=== PATIENT | male | born 1960 | race Hispanic/Latino ===

== ENCOUNTER 2017-01-28 13:43 | Emergency (ER) | payer OTHER ==
[2017-01-28] MEDS ORDERED: CATAPRES ONE (14:43)
[2017-01-28] MEDS ORDERED: CATAPRES PO ONE (14:51)
--- NOTE | 2017-01-28 15:01 | Emergency Department Report ---
Entered by DANIS KAUR, acting as scribe for BUCK DILL PA. Chief Complaint: Pain General Stated Complaint: BP HIGH/SOB Time Seen by Provider: 01/28/17 14:22 - HPI History of Present Illness: Patient presents to the ED c/o palpitations that began today. Over the last 9 months, pt has visited this ED for chest pain, SOB, and elevated blood pressure. Today, he reports SOB, left shoulder pain, neck pain, burning eyes, back pain , mild headache, dry throat and facial tingling. Denies chest pain. - ROS Review of Systems: All system are negative unless stated in HPI above. - Exam Vital Signs: Vital Signs 01/28/17 13:59 Temperature 97.8 F Pulse Rate 96 H Respiratory 20 Rate Blood Pressure 157/120 O2 Sat by Pulse 97 Oximetry Physical Exam: General: well nourished, well developed, nontoxic in appearance, in no acute distress Respiratory: lungs sound clear Cardiovascular: S1/S2 regular rate and rhythm Neurological: GCS 15, A&O x 3, normal gait. Speech is clear. No facial drooping. MSE screening note: Focused history and physical exam performed. Due to findings the following was ordered: ED Medical Decision Making - Medical Decision Making Medical decision making: Patient seen by provider in triage area. Appropriate protocol activated and patient to main ED to be seen by provider ED Disposition for MSE Condition: Stable This documentation as recorded by the scribe,DANIS KAUR,accurately reflects the service I personally performed and the decisions made by me,BUCK DILL PA.
--- NOTE | 2017-01-28 15:21 | Cat Scan Report ---
CT HEAD WITHOUT CONTRAST: HISTORY: Headache, hypertension. Serial contiguous axial images were obtained through the cranium. Intravenous contrast material was not administered. The ventricles are normal in size and appearance. There is no mass effect or midline shift. No areas of abnormally increased or decreased attenuation are seen. No mass lesion is seen. The mastoid air cells and visualized portions of the sinuses are normal. IMPRESSION: Cranial CT scan within normal limits.
--- NOTE | 2017-01-28 15:21 | XRay Report ---
ROUTINE CHEST, TWO VIEWS: HISTORY: Short of breath. The trachea, heart, mediastinal contour, lung leger and bony thorax are unremarkable. IMPRESSION: Unremarkable chest x-ray.
[2017-01-28 15:40] LABS: Basophils % (Auto) 0.6 % (0.0-1.8); Hematocrit 51.3 % (35.5-45.6); Hemoglobin 17.4 gm/dl (11.8-15.2); Mean Corpuscular HGB Conc 34 % (32-34); Mean Corpuscular Hemoglobin 31 pg (28-32); Mean Corpuscular Volume 92 fl (84-94); Platelet Count 226 K/mm3 (140-440); Red Cell Distribution Width 13.5 % (13.2-15.2); White Blood Count 8.6 K/mm3 (4.5-11.0)
[2017-01-28 15:51] LABS: INR 0.98 (0.87-1.13)
[2017-01-28 15:55] LABS: Anion Gap 17 mmol/L; Blood Urea Nitrogen 16 mg/dL (9-20); Calcium 9.6 mg/dL (8.4-10.2); Carbon Dioxide 26 mmol/L (22-30); Chloride 102.2 mmol/L (98-107); Glucose 96 mg/dL (75-100); Potassium 4.2 mmol/L (3.6-5.0); Sodium 141 mmol/L (137-145)
[2017-01-28] MEDS ORDERED: NACL 0.9% 1000 ML 1,000 ML IV ONE ×2 (19:37→20:38)
[2017-01-28] MEDS ORDERED: TORADOL IV ONE (19:38)
[2017-01-28] MEDS ORDERED: REGLAN IV ONE (20:37)
[2017-01-28] MEDS ORDERED: VALIUM IV ONE (20:37)
--- NOTE | 2017-01-28 20:42 | Emergency Department Report ---
HPI - General Chief Complaint: Pain General Time Seen by Provider: 01/28/17 20:16 - HPI HPI: The patient is a 56-year-old male who presents for evaluation of back pain and palpitations. He reports sudden onset of severe palpitations and pounding chest pain at 10 AM this morning, 10/10 in severity, constant for minutes to 1 hour, self resolving, and associated with left-sided low back pain. He states that his back pain was moderate in severity, sharp in quality, exacerbated with movement of the back. The patient denies fever, neck pain, parasthesias, cough, hemoptysis, dizziness, syncope, unilateral leg swelling, calf muscle pain, blunt trauma to the back, fall, saddle anesthesia, leg weakness or numbness, urine or bowel incontinence or retention, difficulty ambulating, or other focal neurological deficits. ED Past Medical Hx - Past Medical History Hx Hypertension: Yes Hx Heart Attack/AMI: Yes (04/2015) - Surgical History Hx Appendectomy: Yes - Social History Smoking Status: Never Smoker Substance Use Type: None - Medications Home Medications: Home Medications Medication Instructions Recorded Confirmed Last Taken Type Aspirin [Adult Low Dose Aspirin EC] 81 mg PO QDAY 01/28/17 01/28/17 Unknown History Esomeprazole Magnesium [NexIUM 22.3 mg pe PO QDAY 01/28/17 01/28/17 Unknown History 24Hr] Metoprolol [Lopressor TAB] 25 mg PO QDAY 01/28/17 01/28/17 Unknown History Cyclobenzaprine HCl [Flexeril 5 MG 5 mg PO Q8HR PRN #15 tab 01/29/17 Unknown Rx TAB] ED Review of Systems ROS: Stated complaint: BP HIGH/SOB Other details as noted in HPI Constitutional: denies: fever ENT: denies: throat or neck pain Respiratory: denies: cough, shortness of breath Cardiovascular: reports palpitations and chest pain Endocrine: denies unexplained weight loss or gain Gastrointestinal: denies: abdominal pain, nausea Genitourinary: denies: dysuria Musculoskeletal: reports back pain denies: leg swelling Skin: denies: rash Neurological: denies: headache Hematological/Lymphatic: denies: easy bleeding or easy bruising Psych: denies sadness or hopelessness Physical Exam - Physical Exam Vital Signs: Vital Signs 04/24/17 04/24/17 04/24/17 13:59 14:52 16:03 Temperature 97.8 F 98 F Pulse Rate 96 H 96 H 73 Respiratory 20 18 Rate Blood Pressure 157/120 157/120 126/95 Blood Pressure [Left] O2 Sat by Pulse 97 100 Oximetry 01/28/17 01/28/17 01/28/17 16:04 18:03 19:52 Temperature 97.7 F 98 F Pulse Rate 61 58 L Respiratory 16 16 18 Rate Blood Pressure Blood Pressure 117/80 98/74 [Left] O2 Sat by Pulse 100 99 Oximetry Physical Exam: General: well-nourished, well-developed, no acute distress Head: Normocephalic, atraumatic Eyes: normal sclera ENT: Mucous membranes are pale and dry Neck: No neck stiffness, no cervical adenopathy Respiratory: Breath sounds equal bilaterally, no wheezing, rales, or rhonchi Cardio: S1 and S2 present, no murmurs, rubs, gallops, capillary refill is delayed Abdomen: Normoactive bowel sounds, soft abdomen, no rigidity, no guarding or rebound tenderness Musc: Inspection of the back nml, tenderness to palpation present to left lower lumbar paraspinal musculature, no midline tenderness to palpation, normal active range of motion at the hips intact, no spinous step-off or obvious deformity, ipsi-lateral and contralateral straight leg raise tests are negative. On extremity testing, compartments are soft and pliable, no obvious gross motor strength deficit, 5+ motor strength, including extension of the great toe bilaterally, no muscular atrophy, spasticity, fasciculations, or clonus, no obvious gross sensation deficit including web space between 1st and 2nd toes, reflexes 2+ & symmetric on DTR testing at the knee and ankle joints, distal pulses intact. Skin: No rash Neuro: no facial drooping, normal speech Psych: Normal affect ED Course Vital Signs 01/28/17 01/28/17 01/28/17 13:59 14:52 16:03 Temperature 97.8 F 98 F Pulse Rate 96 H 96 H 73 Respiratory 20 18 Rate Blood Pressure 157/120 157/120 126/95 Blood Pressure [Left] O2 Sat by Pulse 97 100 Oximetry 01/28/17 01/28/17 01/28/17 16:04 18:03 19:52 Temperature 97.7 F 98 F Pulse Rate 61 58 L Respiratory 16 16 18 Rate Blood Pressure Blood Pressure 117/80 98/74 [Left] O2 Sat by Pulse 100 99 Oximetry ED Medical Decision Making - Lab Data Result diagrams: 01/28/17 15:22 01/28/17 15:22 - Medical Decision Making The patient was seen and examined by myself. The patient is placed on a youth nutritional monitor and continuous pulse ox. On initial evaluation, the patient was found to be in no distress. EKG was negative for findings suggestive of acute cardiac infarct. Labs and imaging are obtained. The patient is given 1 L normal saline fluid bolus for treatment of dehydration. The patient is given IV Valium and IV morphine for his pain. Chest x-ray is negative for pneumothorax, focal consolidation, pulmonary vascular congestion, pleural effusion, or other obvious acute cardiopulmonary disease process. Lab results reveal elevated rbc, hemoglobin, and hematocrit, consistent with hemoconcentration and exam findings of dehydration, and otherwise labs were grossly unremarkable and non-concerning including levels of troponin, WBC, electrolytes, renal function. The patient was reevaluated and reported that their symptoms were markedly improved. As the patient has a DARRELL risk score less than 2, and a well's score less than 2, the patient is at low risk of ACS or pulmonary emboli etiology of their symptoms. The patient is stable for discharge with outpatient follow-up. The patient is given follow-up and return instructions. The patient expressed understanding and agreed with the plan. The patient is discharged in stable condition. Critical care attestation.: If time is entered above; I have spent that time in minutes in the direct care of this critically ill patient, excluding procedure time. ED Disposition Clinical Impression: Dehydration, Acute left-sided low back pain without sciatica, Palpitation, Acute chest pain Disposition: DISCHARGED TO HOME OR SELFCARE Is pt being admited?: No Does the pt Need Aspirin: No Condition: Stable Instructions: Musculoskeletal Pain (ED), Low Back Strain (ED), Dehydration (ED) , Palpitations (ED), Chest Pain (ED) Referrals: BRIAN ANN MD [Primary Care Provider] - 3-5 Days Time of Disposition: 20:41
[2017-01-28] MEDS ORDERED: MORPHINE IV ONE (20:47)
[2017-01-29 00:46] VITALS: BP 122/60
== END 2017-01-29 00:46 | disposition home or self-care (01) ==
LOC: ED 13:43
DX: E86.0 Dehydration (principal); M54.5 Low back pain; R00.2 Palpitations; R07.9 Chest pain, unspecified; I10 Essential (primary) hypertension; I25.2 Old myocardial infarction; Z79.82 Long term (current) use of aspirin
CPT/HCPCS: 36415; 70450; 71020; 80048; 83880; 84484; 85025; 85610; 93005; 93010; 96361; 96374; 96375; 99285; J1885; J2270; J2765; J3360; J7030